=== PATIENT | female | born 1940 | race Caucasian/White ===

== ENCOUNTER 2025-01-04 14:48 | Inpatient (IN) | payer OTHER, MEDICARE ==
[2025-01-04 16:14] LABS: ABSOLUTE IMMATURE GRANULOCYTES 0.02 x10^3/uL (0.0-0.031); BASOPHILS # 0.02 x10^3/uL (0.01-0.08); EOSINOPHIL % 1.7 % (0.7-5.8); EOSINOPHILS # 0.10 x10^3/uL (0.04-0.36); MCHC 33.0 g/dl (32.2-35.5); MEAN CELL VOLUME 105.1 fl (79.4-94.8); MEAN PLT VOLUME 8.5 fl (9.4-12.3); MONOCYTE # 0.53 x10^3/uL (0.24-0.86); MONOCYTE % 9.2 % (4.7-12.5); RDW 13.2 % (12.5-17.0)
[2025-01-04 16:24] LABS: INR 1.04 (0.83-1.09); PROTHROMBIN TIME (PATIENT) 11.4 SEC (9.7-13.0)
[2025-01-04 16:26] LABS: ACTIVATED PTT 27.3 SECONDS (25.2-36.5)
[2025-01-04 16:49] LABS: GLUCOSE,RANDOM 84.0 mg/dL (74-106); TOT PROT 9.1 g/dl (6.4-8.2)
[2025-01-04] MEDS: SODIUM CHLORIDE 0.9% 500 ML INFUS.BAG IV ONE (16:49)
[2025-01-04 16:50] LABS: CO2 28.0 mmol/L (21-32)
[2025-01-04 16:52] LABS: ALK PHOS 72.0 U/L (40-150)
[2025-01-04 16:54] LABS: SGOT/AST 28.0 U/L (5-34); SGPT/ALT 10.0 U/L (0-55)
[2025-01-04 16:55] LABS: CREATININE 0.52 mg/dL (0.55-1.3)
[2025-01-04] MEDS: SODIUM CHLORIDE 1,000 ML IV SCH (19:39)
[2025-01-04] MEDS: SODIUM CHLORIDE 1 GM TABLET PO SCH (21:34)
[2025-01-04 23:36] LABS: URINE APPEARANCE CLEAR; URINE BILIRUBIN NEGATIVE (NEGATIVE); URINE COLOR YELLOW; URINE GLUCOSE (UA) NEGATIVE (NEGATIVE); URINE KETONE NEGATIVE (NEGATIVE); URINE LEUK ESTERASE NEGATIVE (NEGATIVE); URINE NITRITE NEGATIVE (NEGATIVE); URINE PROTEIN NEGATIVE (NEGATIVE); URINE UROBILINOGEN 0.2 mg/dL (0.2-1.0)
[2025-01-05 08:27] LABS: ABSOLUTE IMMATURE GRANULOCYTES 0.01 x10^3/uL (0.0-0.031); BASOPHILS # 0.05 x10^3/uL (0.01-0.08); EOSINOPHIL % 1.8 % (0.7-5.8); EOSINOPHILS # 0.11 x10^3/uL (0.04-0.36); MCHC 32.7 g/dl (32.2-35.5); MEAN CELL VOLUME 104.9 fl (79.4-94.8); MEAN PLT VOLUME 9.1 fl (9.4-12.3); MONOCYTE # 0.60 x10^3/uL (0.24-0.86); MONOCYTE % 9.7 % (4.7-12.5); RDW 13.1 % (12.5-17.0)
[2025-01-05 09:18] LABS: GLUCOSE,RANDOM 73.0 mg/dL (74-106); TOT PROT 9.0 g/dl (6.4-8.2)
[2025-01-05 09:19] LABS: CO2 28.0 mmol/L (21-32)
[2025-01-05 09:21] LABS: ALK PHOS 72.0 U/L (40-150)
[2025-01-05 09:23] LABS: SGOT/AST 27.0 U/L (5-34); SGPT/ALT 7.0 U/L (0-55)
[2025-01-05 09:24] LABS: CREATININE 0.58 mg/dL (0.55-1.3)
[2025-01-05] MEDS: LISINOPRIL 20 MG TABLET PO SCH (10:43)
[2025-01-05] MEDS: amLODIPine BESYLATE 5 MG TABLET (FP) PO SCH (10:43)
[2025-01-05] MEDS: ENOXAPARIN NA (PORCINE) 40 MG/0.4 ML DISP.SYRIN SQ SCH (10:43)
[2025-01-05] MEDS: valACYclovir HCL 500 MG TABLET (FP) PO SCH (10:43)
[2025-01-05] MEDS ORDERED: SODIUM CHLORIDE 1 GM TABLET PO SCH (15:09)
[2025-01-05] MEDS: DOXYCYCLINE MONOHYDRATE 25 MG/5 ML SUSPENSION PO SCH ×2 (15:36→19:24)
[2025-01-05] MEDS: SODIUM CHLORIDE 1 GM TABLET PO ONE ×2 (18:15→19:25)
[2025-01-05] MEDS: MIRTAZAPINE 15 MG TABLET (FP) PO SCH (21:52)
[2025-01-05] MEDS: SODIUM CHLORIDE 1 GM TABLET PO SCH (21:53)
[2025-01-06 06:57] VITALS: RESP 18
[2025-01-06 08:37] LABS: ABSOLUTE IMMATURE GRANULOCYTES 0.01 x10^3/uL (0.0-0.031); BASOPHILS # 0.03 x10^3/uL (0.01-0.08); EOSINOPHIL % 2.0 % (0.7-5.8); EOSINOPHILS # 0.10 x10^3/uL (0.04-0.36); MCHC 31.9 g/dl (32.2-35.5); MEAN CELL VOLUME 105.6 fl (79.4-94.8); MEAN PLT VOLUME 8.9 fl (9.4-12.3); MONOCYTE # 0.49 x10^3/uL (0.24-0.86); MONOCYTE % 9.8 % (4.7-12.5); RDW 13.4 % (12.5-17.0)
[2025-01-06 08:48] LABS: GLUCOSE,RANDOM 71.0 mg/dL (74-106)
[2025-01-06 08:50] LABS: CO2 31.0 mmol/L (21-32)
[2025-01-06 08:54] LABS: CREATININE 0.5 mg/dL (0.55-1.3)
[2025-01-06 08:58] LABS: LDL CHOLESTEROL (ONLY SJRH) 94.0 mg/dL (5-100)
[2025-01-06 09:26] VITALS: BMI 14.3
[2025-01-06] MEDS: DOXYCYCLINE MONOHYDRATE 25 MG/5 ML SUSPENSION PO SCH (11:14)
[2025-01-06 12:17] VITALS: BP 106/67; PULSE 96; TEMP 97.1
[2025-01-06] MEDS: ZINC OXIDE 20% TOPICAL OINTMENT 30 GM TUBE TP SCH (13:12)
== END 2025-01-06 01:15 | disposition home or self-care (01) | DRG 640 ==
LOC: JER 14:48 → JERBED 17:48 → J6W TELE 19:52 → OBSVTOIN 01-05 09:24
PROVIDERS: ADMIT Hospitalist; ATTEND Internal Medicine
DX: E87.1 Hypo-osmolality and hyponatremia (principal); E43 Unspecified severe protein-calorie malnutrition; Z68.1 Body mass index [BMI] 19.9 or less, adult; I10 Essential (primary) hypertension; E83.51 Hypocalcemia; H26.9 Unspecified cataract; M35.00 Sjogren syndrome, unspecified; R55 Syncope and collapse; E86.0 Dehydration
CPT/HCPCS: 36415; 70450-TC; 71045-TC-FY; 80048; 80053; 80061; 81003; 82607; 82746; 83735; 83930; 83935; 84100; 84155; 84165; 84443; 84484; 85025; 85610; 85730; 87086; 93005; 93010; 93880-TC; 95816; 99285-25; G0378